=== PATIENT | male | born 1990 | race Caucasian/White ===

== ENCOUNTER 2017-12-17 01:35 | Emergency (ER) | payer BC ==
[2017-12-17] MEDS ORDERED: Lidocaine 1% 10 ML MDV INJECT ONE (01:52)
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
== END 2017-12-17 02:39 | disposition home or self-care (01) ==
LOC: JD.ED 01:35
DX: S01.112A Laceration without foreign body of left eyelid and periocular area, initial encounter (principal); Y04.2XXA Assault by strike against or bumped into by another person, initial encounter
CPT/HCPCS: 12011; 99282-25; 99284-25